=== PATIENT | female | born 1985 | race Caucasian/White ===

== ENCOUNTER → 2021-06-23 | Outpatient (CLI) | payer OTHER ==
[~2021-06-23] MED LIST: DONE5TAB53 PO; ESCI10TA10 PO; LORA-448 PO; METF500T17 PO; METH10TA4 PO; TIAG2TAB PO; [UNRECOGNIZED DRUG - CODE] PO
== END | disposition home or self-care (01) ==
LOC: LAB 16:19
PROVIDERS: ATTEND Nurse Practitioner Adult Health
DX: L02.31 Cutaneous abscess of buttock (principal)
CPT/HCPCS: 87070; 87186

== ENCOUNTER → 2022-02-10 | Outpatient (CLI) | payer SELFPAY | END | disposition home or self-care (01) | LOC: NPLAB 14:45 | PROVIDERS: ATTEND Nurse Practitioner Adult Health | DX: R07.0 Pain in throat (principal); R50.9 Fever, unspecified; R09.81 Nasal congestion; Z20.822 Contact with and (suspected) exposure to COVID-19 | CPT/HCPCS: 87426 ==